=== PATIENT | female | born 1990 | race Caucasian/White ===

== ENCOUNTER 2023-12-25 19:08 | Emergency (ER) | payer OTHER ==
[~2023-12-25] VITALS: Ht 152.4 cm; Wt 81.0 kg
[2023-12-25 19:34] VITALS: O2SAT 98
[2023-12-25 22:32] VITALS: BP 126/86; PULSE 86; RESP 18
[2023-12-25] MEDS: KETOROLAC 30MG/ML VIAL IM STA (22:32)
[2023-12-25 22:33] VITALS: TEMP 98.6
[2023-12-25] MEDS: METOCLOPRAMIDE HCL 10MG/2ML VIAL IM ONE (22:33)
[2023-12-25] MEDS: ACETAMINOPHEN 325MG TABLET PO STA (22:33)
[2023-12-25 23:23] LABS: CLARITY URINE CLOUDY (CLEAR); COLOR URINE YELLOW (YELLOW); GLUCOSE URINE NEGATIVE (NEGATIVE); KETONES URINE NEGATIVE (NEGATIVE); LEUKOCYTE ESTERASE URINE NEGATIVE (NEGATIVE); NITRITE URINE NEGATIVE (NEGATIVE); OCCULT BLOOD URINE NEGATIVE (NEGATIVE); PROTEIN URINE NEGATIVE (NEGATIVE); SPECIFIC GRAVITY URINE 1.025 (1.005-1.030)
[2023-12-25] MEDS ORDERED: IBUP-2029 MT (23:39)
[2023-12-26 00:25] LABS: SQUAMOUS EPITHELIAL CELL URINE FEW /lpf (RARE/1+)
[2023-12-26 00:28] LABS: BACTERIA URINE NONE SEEN; RBC URINE 0-2 /hpf (0-2); WBC URINE 0-2 /hpf (0-2)
[2023-12-26 00:29] LABS: TRICHOMONAS URINE 1+
[2023-12-27] MEDS ORDERED: METR-167 MT (10:46)
== END 2023-12-26 00:22 | disposition home or self-care (01) ==
LOC: ER 19:08
DX: N39.0 Urinary tract infection, site not specified (principal); R51.9 Headache, unspecified
CPT/HCPCS: 99284; 81003; 81025; 96372; J1885; J2765